=== PATIENT | female | born 1975 | race Caucasian/White ===

== ENCOUNTER → 2016-10-20 | Outpatient (CLI) | payer BC ==
[2012-11-10 05:09] VITALS: BP 118/90
[~2016-10-20] MED LIST: CLONAZEPAM0.5 MG PO
== END ==
LOC: LAB 08:10
DX: E03.8 Other specified hypothyroidism (principal); R53.83 Other fatigue; E04.2 Nontoxic multinodular goiter

== ENCOUNTER → 2017-04-04 | Outpatient (CLI) | payer BC ==
[2012-11-10 05:09] VITALS: BP 118/90
== END ==
LOC: LAB 17:03
DX: E04.2 Nontoxic multinodular goiter (principal)

== ENCOUNTER → 2017-07-25 | Day surgery (SDC) | payer BC ==
[2012-11-10 05:09] VITALS: BP 118/90
== END ==
LOC: MSO 07:59
DX: C18.7 Malignant neoplasm of sigmoid colon (principal); Z15.09 Genetic susceptibility to other malignant neoplasm; Z80.0 Family history of malignant neoplasm of digestive organs; Z88.1 Allergy status to other antibiotic agents; Z86.010 Personal history of colon polyps
CPT/HCPCS: 00811; J2704; J7120

== ENCOUNTER → 2018-03-30 | Outpatient (CLI) | payer BC ==
[2012-11-10 05:09] VITALS: BP 118/90
[2018-03-31 02:10] LABS: T3 FREE 3.9 pg/mL (1.7-3.7)
== END ==
LOC: LAB 11:01
PROVIDERS: Family Medicine
DX: E04.2 Nontoxic multinodular goiter (principal)

== ENCOUNTER → 2018-10-11 | Outpatient (CLI) | payer BC ==
[2012-11-10 05:09] VITALS: BP 118/90
== END ==
LOC: MAMMO 15:38
DX: Z12.31 Encounter for screening mammogram for malignant neoplasm of breast (principal); N63.0 Unspecified lump in unspecified breast

== ENCOUNTER → 2018-10-23 | Outpatient (CLI) | payer BC ==
[2012-11-10 05:09] VITALS: BP 118/90
== END ==
LOC: MAMMO 07:26
DX: N60.11 Diffuse cystic mastopathy of right breast (principal); N60.12 Diffuse cystic mastopathy of left breast

== ENCOUNTER → 2019-12-20 | Outpatient (CLI) | payer BC ==
[2012-11-10 05:09] VITALS: BP 118/90
[2019-12-20 10:08] LABS: HEMATOCRIT 43.3 % (37.0-47.0); HEMOGLOBIN 13.6 g/dL (12.5-16.0); MEAN PLATELET VOLUME 10.4 fl (7.4-10.4); RED BLOOD COUNT 4.79 M/mm3 (4.10-5.30); RED CELL DISTRIBUTION WIDTH 13.1 % (11.5-14.5); WHITE BLOOD COUNT 5.9 K/mm3 (4.8-10.8)
[2019-12-20 10:18] LABS: ALBUMIN 4.3 g/dL (3.5-5.0); POTASSIUM 3.9 mmol/L (3.5-5.1)
[2019-12-20 10:19] LABS: CALCIUM 9.7 mg/dL (8.3-10.5)
[2019-12-20 10:21] LABS: TOTAL PROTEIN 7.2 g/dL (6.4-8.3)
[2019-12-20 10:22] LABS: TOTAL BILIRUBIN 0.4 mg/dL (0.2-1.2)
== END ==
LOC: LAB 09:54
PROVIDERS: Family Medicine
DX: E04.2 Nontoxic multinodular goiter (principal); R53.83 Other fatigue

== ENCOUNTER → 2019-12-25 | Outpatient (CLI) | payer BC ==
[2012-11-10 05:09] VITALS: BP 118/90
== END ==
LOC: MAMMO 09:18
DX: Z12.31 Encounter for screening mammogram for malignant neoplasm of breast (principal); N63.10 Unspecified lump in the right breast, unspecified quadrant; N63.20 Unspecified lump in the left breast, unspecified quadrant

== ENCOUNTER → 2020-07-19 | Outpatient (CLI) | payer BC ==
[2012-11-10 05:09] VITALS: BP 118/90
[2020-07-21 16:14] LABS: T3 FREE 1.4 pg/mL (1.7-3.7)
== END ==
LOC: LAB 08:51
PROVIDERS: Family Medicine
DX: E04.2 Nontoxic multinodular goiter (principal); Z20.822 Contact with and (suspected) exposure to COVID-19

== ENCOUNTER → 2020-12-04 | Outpatient (CLI) | payer BC | LOC: LAB 10:47 | DX: E04.2 Nontoxic multinodular goiter (principal) ==

== ENCOUNTER → 2020-12-24 | Outpatient (CLI) | payer BC | LOC: LAB 11:04 | DX: E04.2 Nontoxic multinodular goiter (principal) ==

== ENCOUNTER → 2021-06-15 | Outpatient (CLI) | payer BC | LOC: LAB 11:23 | DX: E04.2 Nontoxic multinodular goiter (principal) ==

== ENCOUNTER → 2021-06-22 | Outpatient (CLI) | payer BC | LOC: RAD 13:00 | DX: E04.2 Nontoxic multinodular goiter (principal) ==